=== PATIENT | male | born 1990 | race Hispanic/Latino ===

== ENCOUNTER 2018-11-30 13:05 | Emergency (ER) | payer BC, OTHER ==
[2018-11-30] MEDS ORDERED: Sodium Chloride 0.9% 1,000 ML IV ONE (14:41)
[2018-11-30 15:18] LABS: BASO % 0.3 % (0.0-2.0); EOS % 0.1 % (0.0-4.0); LYMPH % 8.3 % (20.0-40.0); MEAN CELL VOLUME 89.4 fL (80.0-94.0); MEAN CORPUSCULAR HEMOGLOBIN 30.7 pg (27.0-31.0); MEAN CORPUSCULAR HGB CONC 34.3 g/dL (33.0-37.0); MEAN PLATELET VOLUME 7.7 fL (7.2-11.7); MONO # 0.9 K/uL (0.0-0.8); MONO % 7.7 % (0.0-10.0); NEUT # 9.5 K/uL (1.8-7.0); NEUT % 83.6 % (50.0-75.0); PLATELET COUNT 243 K/uL (130-400); RBC 4.89 Mil/uL (4.40-5.90); RED CELL DISTRIBUTION WIDTH 12.9 % (11.5-14.5)
[2018-11-30 15:21] LABS: WHITE BLOOD COUNT 11.4 K/uL (4.8-10.8)
[2018-11-30 15:34] LABS: ALB/GLOB RATIO 1.6 (1.0-2.1); ALBUMIN 4.5 g/dL (3.5-5.0); ALT/SGPT 46 U/L (21-72); AST/SGOT 30 U/L (17-59); BLOOD UREA NITROGEN 18 mg/dL (9-20); CALCIUM 9.3 mg/dl (8.6-10.4); GFR NON-AFRICAN AMERICAN > 60; LIPASE 21 U/L (23-300)
[2018-11-30 15:43] LABS: BANDS 3 % (0-2); EOSINOPHIL 1 % (0-4); LYMPHOCYTE 11 % (20-40); MONOCYTE 7 % (0-10); NEUTROPHIL 78 % (50-75); PLATELET ESTIMATE NORMAL (NORMAL); TOTAL CELLS COUNTED 100
--- NOTE | 2018-11-30 15:57 | RAD ---
Date of service: 11/30/2018 HISTORY: Cough COMPARISON: No prior. TECHNIQUE: Chest PA and lateral views FINDINGS: LUNGS: No active pulmonary disease. PLEURA: No significant pleural effusion identified. No pneumothorax apparent. CARDIOVASCULAR: No aortic atherosclerotic calcification present. Normal cardiac size. No pulmonary vascular congestion. OSSEOUS STRUCTURES: Minor multilevel degenerative spondylosis of the thoracic spine VISUALIZED UPPER ABDOMEN: Normal. OTHER FINDINGS: None. IMPRESSION: No active disease.
[2018-11-30 16:25] VITALS: BP 112/74; PULSE 104; RESP 18; TEMP 100.5; O2SAT 99
--- NOTE | 2018-11-30 17:10 | C.PDOC ---
History Of Present Illness 28 y/o male presents to the ER complaining of abdominal pain and diarrhea which has been present for the past 1 days. Patient states that he was recently diagnosed with pneumonia by his PMD,. Patient reports that his PMD adv ised him to come to the ER for evaluation. He notes that he still has cough. Denies having fever,chills, CP,SOB,nausea, and vomiting. Chief Complaint (Nursing): Abdominal Pain History Per: Patient History/Exam Limitations: no limitations Onset/Duration Of Symptoms: Days Current Symptoms Are (Timing): Still Present Severity: Moderate Past Medical History Reviewed: Historical Data, Nursing Documentation, Vital Signs Vital Signs: Last Vital Signs Temp 100.5 F H 11/30/18 16:15 Pulse 104 H 11/30/18 16:15 Resp 18 11/30/18 16:15 BP 112/74 11/30/18 16:15 Pulse Ox 99 11/30/18 16:15 - Medical History PMH: Pneumonia Surgical History: No Surg Hx Family History: States: No Known Family Hx - Social History Hx Tobacco Use: No Hx Alcohol Use: No Hx Substance Use: No - Immunization History Hx Tetanus Toxoid Vaccination: Yes Hx Influenza Vaccination: No Hx Pneumococcal Vaccination: No Review Of Systems Except As Marked, All Systems Reviewed And Found Negative. Constitutional: Negative for: Fever, Chills Cardiovascular: Negative for: Chest Pain Respiratory: Positive for: Cough. Negative for: Shortness of Breath Gastrointestinal: Positive for: Abdominal Pain, Diarrhea. Negative for: Nausea, Vomiting Physical Exam - Physical Exam Appears: No Acute Distress Skin: Normal Color, Warm, Dry Head: Atraumatic, Normacephalic Eye(s): bilateral: Normal Inspection Nose: Normal Oral Mucosa: Moist Neck: Supple Cardiovascular: Rhythm Regular Respiratory: No Rales, Rhonchi (rhonchi at right base), No Wheezing Gastrointestinal/Abdominal: Normal Exam, Soft, No Tenderness, No Guarding, No Rebound Neurological/Psych: Oriented x3, Normal Speech ED Course And Treatment - Laboratory Results Result Diagrams: 11/30/18 15:09 11/30/18 15: Lab Results: Total Bilirubin 0.5 mg/dL (0.2-1.3) 11/30/18 15: AST 30 U/L (17-59) 11/30/18 15:09 ALT 46 U/L (21-72) 11/30/18 15:09 Alkaline Phosphatase 67 U/L (38-126) 11/30/18 15:09 Total Protein 7.4 g/dL (6.3-8.3) 11/30/18 15:09 Albumin 4.5 g/dL (3.5-5.0) 11/30/18 15:09 Globulin 2.9 gm/dL (2.2-3.9) 11/30/18 15:09 Albumin/Globulin Ratio 1.6 (1.0-2.1) 11/30/18 15:09 Lipase 21 U/L (23-300) L 11/30/18 15:09 O2 Sat by Pulse Oximetry: 99 (RA) Pulse Ox Interpretation: Normal Medical Decision Making Medical Decision Making: Plan: --Labs --CXR --Tylenol PO --IV Fluids Disposition - Disposition Referrals: Asaf Jessica MD [Staff Provider] - Disposition: HOME/ ROUTINE Disposition Time: 15:50 Condition: GOOD Additional Instructions: ZAHIRA VIEYRA, thank you for letting us take care of you today. The emergency medical care you received today was directed at your acute symptoms. If you were prescribed any medication, please fill it and take as directed. It may take several days for your symptoms to resolve. Return to the Emergency Department if your symptoms worsen, do not improve, or if you have any other problems. Please contact your doctor or call one of the physicians/clinics you have been referred to that are listed on the Patient Visit Information form that is included in your discharge packet. Bring any paperwork you were given at discharge with you along with any medications you are taking to your follow up visit. Our treatment cannot replace ongoing medical care by a primary care provider outside of the emergency department. Thank you for allowing the [facility] team to be part of your care today. Follow up with your primary care doctor tomorrow as scheduled. Stop taking the Augmentin. Prescriptions: levoFLOXacin [Levaquin] 750 mg PO DAILY #5 tab Instructions: Pneumonia in Adults Forms: [employer] ([place]ian), Work Excuse - Clinical Impression Clinical Impression: Pneumonia - Scribe Statement The provider has reviewed the documentation as recorded by the Carla Monte Provider Attestation: All medical record entries made by the Scribe were at my direction and personally dictated by me. I have reviewed the chart and agree that the record accurately reflects my personal performance of the history, physical exam, medical decision making, and the department course for this patient. I have also personally directed, reviewed, and agree with the discharge instructions and disposition.
== END 2018-11-30 16:26 | disposition home or self-care (01) ==
LOC: C.ER 13:05
DX: J18.9 Pneumonia, unspecified organism (principal)
CPT/HCPCS: 71046; 80053; 83690; 85025; 96360; 99283; J7030